=== PATIENT | male | born 1965 | race Caucasian/White ===

== ENCOUNTER 2021-04-09 12:02 | Inpatient (IN) | payer OTHER ==
[~2021-04-09] VITALS: Ht 182.9 cm; Wt 93.4 kg
[~2021-04-09 12:02] MED LIST: ASPIR 8181 MG PO; COMBIGAN EYE DR10 ML OPHTHALMIC; FLOMAX0.4 MG PO; KEPPRA 500 MG500 M1 PO; NICOTINE TRANSD21 M1 TRANSDERM; SIMVASTATIN40 MG PO; TOPROL XL25 MG PO; VENLAFAXIN75 MG/1 T2 PO
--- NOTE | 2021-04-09 15:40 | NUR ---
PATIENT COVID TESTING COMPLETED 04/09/21 WITH NEGATIVE RESULT.
[2021-04-09 18:21] VITALS: BP 135/77
--- NOTE | 2021-04-10 02:40 | NUR ---
ASSUMED CARE AT 1930 OF 04/09. PATIENT ARRIVE ON UNIT AT 1750 AND PREVIOUS NURSE PERFORMED ADMISSION ASSESSMENT. ADMISSION PACKET PROVIDED TO PATIENT, PATIENT IS ORIENTED TO ROOM AND UNIT. CONSENT FORMS ARE SIGNED, ADVANCE DIRECTIVE PAPERWORK PLACED IN CHART. PATIENT IS A&O TO PERSON, TIME AND SITUATION, WAS REORIENTED TO PLACE. ON ROOM AIR, NON-PRODUCTIVE COUGH PRESENT. RIGHT ELBOW HAS FOAM DRESSING COVERING A SKIN ABRAISON. HARD OF HEARING, PER PATIENT HE IS DEAF IN LEFT EAR, AND WEARS EARPLUG TO SHOWER. WEARS GLASSES. DUE TO HX OF SEIZURES PATIENT HAS AN IMPLATED VAGUS NERVE STIMULATOR DEVICE IN HIS LEFT CHEST, WHICH IS ACTIVATED BY THE MAGNET TO ON PATIENTS RIGHT WRIST. REMAINS ON SEIZURE PRECAUTIONS. ABLE TO MAKE NEEDS KNOWN, MINIMAL ASSIST WITH TRANSFER AND AMBULATION TO TOILET, USING BG AND WALKER. FALL PRECAUTIONS IN PLACE, CALL LIGHT WITHIN REACH. WILL CONTINUE TO MONITOR.
[2021-04-10 06:03] LABS: HEMATOCRIT 37.8 % (42.0-52.0); HEMOGLOBIN 12.7 gm/dL (14.0-18.0); MCH 28.7 pg (26.0-34.0); MCHC 33.6 g/dL (28.0-37.0); MCV 85.5 fL (80.0-100.0); RBC 4.42 mil/uL (4.50-6.00); RDW 13.6 % (10.5-14.5); WBC 5.3 thou/uL (4.0-11.0)
[2021-04-10 06:43] LABS: CALCIUM 8.5 mg/dL (8.5-10.1); CREATININE 0.7 mg/dL (0.7-1.3); MAGNESIUM 2.1 mg/dL (1.8-2.4); POTASSIUM 3.3 mmol/L (3.5-5.1)
[2021-04-10 07:15] VITALS: BP 147/77
[2021-04-10 07:31] LABS: FOLIC ACID 4.7 ng/mL (8.6-58.9)
--- NOTE | 2021-04-10 11:50 | NUR ---
PATIENT IS ALERT, AND ORIENTED X 2-3, ABLE TO VOICE NEED. HE IS FORGETFUL AT TIMES. PATIENT IS CALM, COOPERATIVE WITH CARE. LUNGS WITH DIMINISHED SOUND IN ALL LOBE PER AUSCULTATION, BS+X4, ABD SOFT, NON-TENDER TO TOUCH. PATIENT IS EATING MEALS, AND DRINKING FLUID WELL. PATIENT TOOK ALL MEDICATION WHOLE WITHOUT DIFFICULTY. PATIENT IS PLACED ON 1500ML FLUID RESTRICTION IN 24HRS (ONLY WATER), HE CAN HAVE COFFEE, JUICE, OR ANY OTHER DRINK PER NURSE PRACTITIONER (BREA). PATIENT IS UPPER [place], DEAF TO LEFT EAR, EAR PLUG IN PLACE TO LEFT EAR. PATIENT REQUIRES ASIST OF STAFF WITH GAIT BELT TO TRANSFER. OPTIFOARM APPLIED TO RIGHT ELBOW ABRASION. FALL, AND SEIZURE PRECAUTION IN PLACE, NO SIGN OF ACUTE DISTRESS NOTED AT THIS TIME, CALL LIGHT IN PLACE, WILL CONTINUE TO MONITOR.
--- NOTE | 2021-04-10 16:29 | NUR ---
56 year old male, from [facility]. Dx fall, weakness and ams. Hx of seizures. He lives at home with his fiance delgado # [phone]. Prior to hospital he was up walking around with his cane. does not drive r/t his seizures. His fiance already assist with his medication and finances. There is 7 steps to enter the home and then another 8 stairs up to the kitchen and bedrooms. No hh, skilled or acute rehab in the past. Will cont following as needed for dc needs.
--- NOTE | 2021-04-10 19:32 | NUR ---
ASSUMED CARE OF PT AT 1910. PT IS A&OX4. IS ON ROOM AIR. DENIES PAIN. IS STABLE. SEIZURE PRECAUTIONS IN PLACE. LEFT CHEST IMPLANTED DEVICE IN PLACE WITH MONITORING DEVICE ON LEFT WRIST. RIGHT ARM FOAM DRSG C/D/I. IS ABLE TO TURN SELF IN BED. IS UP WITH TOUCH ASSIST X1, GB, WALKER. FALL PRECAUTIONS & HOURLY ROUNDING CONTINUED THIS SHIFT. LABS & VITALS REVIEWED. PT IS READY FOR BED. CALL LIGHT WITHIN REACH. CONTINUES ON 1500ML FLUID WATER RESTRICITON. HAS 400 ML LEFT IN WATER MUG. CALL LIGHT WITHIN REACH. WILL CONTINUE TO MONITOR.
[2021-04-10 19:51] VITALS: BP 121/82
[2021-04-11 04:06] LABS: GLYCOHEMOGLOBIN (HGB A1C) 5.4 % (4.8-5.6)
[2021-04-11 08:00] VITALS: BP 127/72
--- NOTE | 2021-04-11 16:19 | NUR ---
PT ALERT AND ORIENTED. PLEASANT AND COOPERATIVE WITH CARES. DENIED HAVING PAIN OR DISCOMFORT. ENCOURAGED TO USE IS. UP IN THE CHAIR MID AFTERNOON. SEIZURE PRECAUTION ENFORCED. NO CONCERNS AT THIS TIME.
[2021-04-11 19:16] VITALS: BP 127/78
--- NOTE | 2021-04-12 05:39 | NUR ---
04-12-21 CARE TRANSFERRED 1899. PT AAOX4, VSS, RR EVEN AND NONLABORED ON RA, PT LUNGS CLEAR DIMINSHED WITH NONPRODUCTIVE COUGH, HT RR, ABD SOFT AND ACTIVE. PT DENIES PAIN. LEFT CHEST IMPLANT IN PLACE WITH LEFT WRIST MONITOR IN PLACE. PT RIGHT FOREARM DRESSING C/D/I. SEIZURE AND FALL PRECAUTION IN PLACE. PT HAD 350ML WATER, MAINTAINING 1500CC DAILY. PT UP X1 ASSIST WITH WALKER AND GAIT BELT IN PLACE.
[2021-04-12 07:15] VITALS: BP 124/77
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
[2021-04-12 19:35] VITALS: BP 139/85
--- NOTE | 2021-04-13 05:32 | NUR ---
ASSUMED PT CARE THIS PM. PT IS ALERT AND ORINTED X4. PT IS ON SEIZURE PRECAUTION. PT CARES FOR ASSISTANCE TO THE BR AND SOMETIMES USES URINAL.PT DID NOT VERBALIZE ANY CONCERNS AND NO VISIBLE SIGN OF DISTRESS WAS NOTED. PT IS ON RA. FALL PRECAUTIONS IN PLACE. WILL CONTINUE TO MONITOR.
[2021-04-13 06:06] LABS: CALCIUM 8.3 mg/dL (8.5-10.1); CREATININE 0.7 mg/dL (0.7-1.3)
[2021-04-13 08:00] VITALS: BP 130/63
--- NOTE | 2021-04-13 17:39 | NUR ---
Patient care resummed, patient lying in bed in a semi-fowlers postion. Patient on seziure and fall precautions. A&O*4, lung sounds clear & unlabored, abdomen soft without distention noted, bowel sounds present*4. Patient is a *1 assist, standby with walker and gait belt. No concerns voiced with REAL ESTATE LEGAL SECRETARY at this time, no visible signs of distress was noted. Patient has Left chest implant in place with wrist monitior. Patient also has a dressing to the Right forarm which is C/D/I. VSS, on room air and fluid restriction in place at 1,500cc. Medications were taken whole without complication with half a cup of water. Will continue to monitior patient for safety.
[2021-04-13 20:00] VITALS: BP 146/78
--- NOTE | 2021-04-14 04:30 | NUR ---
04-13-21 CARE TRANSFERRED 1899. PT AAOX3, VSS, RR EVEN AND NONLABORED ON RA, PT LUNGS CLEAR DIMISHED, HT RR, ABD SOFT AND ACTIVE. PT L. CHEST IMPLANT WITH L. WRIST MONITOR IN PLACE. R. FOREARM DRESSING C/D/I. DURING MEDICATION ADMIN PT HAD NO DIFFICLTIES TAKING MEDICATION WHOLE WITH WATER. LATER DUMPED 300ML OF WATER. 480ML OF FRESH WATER WILL CONTINUE TO MONITOR 1500ML/DAILY. PT HAS REPORTED HEADACHE AND PAIN HAS BEEN MANAGED WITH PRN.
[2021-04-14 07:15] VITALS: BP 124/78
--- NOTE | 2021-04-14 10:41 | NUR ---
ASSUMED CARE OF PT AT 0700 THIS MORNING. PT IS A/OX4 AND HAS NO COMPLAINTS. ASSESSMENTS CHARTED AND OTHERWISE UNREMARKABLE. FALL AND SEIZURE PRECAUTIONS ARE IN PLACE. CALL LIGHT AND OTHER NEEDS ARE IN REACH. MEDS AND TX GIVEN NEEDED AND SCHEDULED. PHYS THPY AND OT WORKING WITH PT TODAY. WILL MONITOR AND WILL NOTE ANY CHANGES.
[2021-04-14 19:50] VITALS: BP 163/80
--- NOTE | 2021-04-15 00:19 | NUR ---
PT ALERT AND ORIENTED X 4. AMB TO BR WITH WALKER AND ASSIST X 1 WITHOUT DIFFICULTY. PT TAKES MEDS WITH WATER WITHOUT DIFFICULTY. AT START OF SHIFT, PT STATED HE WAS FEELING FUNNY LIKE HE MIGHT HAVE A SEIZURE. WAIVED LEFT WRIST DEVICE OVER LEFT CHEST IMPLANTED DEVICE AND FEELING WENT AWAY IMMEDIATELY. NO SEIZURE ACTIVITIY SO FAR TONIGHT. PT DENIES PAIN OR DISCOMFORT. BED ALARM ON FOR SAFETY. PT CHECKED ON HOURLY ROUNDS. PT EASILY VISIBLE FROM NURSES STATION.
[2021-04-15 07:15] VITALS: BP 143/65
--- NOTE | 2021-04-15 12:54 | NUR ---
PT ALERT AND ORIENTED TIMES FOUR. VSS. PT DENIES PAIN/SOA AT THIS TIME. PT WORKED WELL WITH PT/OT TODAY. PT TOLERATES MEDS AND MEALS. PT PROGRESSING TOWARDS POC GOALS.
[2021-04-15 20:22] VITALS: BP 160/82
--- NOTE | 2021-04-16 02:26 | NUR ---
PT ASSESSMENT COMPLETED AND VSS. MEDS GIVEN ORDERED AND WELL TOLERATED. FALL PRECAUTIONS IN PLACE. UP TO THE BATHROOM WITH ASST/GAIT/WALKER. SEIZURE PRECAUTIONS IN PLACE - 0 NOTED SO FAR DURING SHIFT. SLEEPING WELL AT THIS TIME. WILL CONTINUE TO MONITOR FREQUENTLY.
[2021-04-16 07:15] VITALS: BP 142/88
--- NOTE | 2021-04-16 13:50 | NUR ---
team meeting, limited carry over with his cognition. Impulsive during shower. Needs shower chair for home. Balance impairment. Needs assist with medication and finances. Prior to hospital he was able to be home alone. Check and see if his finance works in the home or outside the home. D/C 04/23 with 08/12 supervision. Will need FWW.
--- NOTE | 2021-04-16 16:05 | NUR ---
ASSUMED CARE AT 0700. PATIENT IS ALERT AND ORIENTED X1-2. PATIENT STEWART'S, HOSTESS ARE EQUAL. LUNGS ARE CLEAR AND DIMISHED. ABD IS SOFT WITH BSX4. PATIENT CAN BE BE RETROPULSIVE. PATIENT IS UP WITH 1 GAIT BELT AND WALKER TO BATHROOM TO VOID. FALL AND SAFETY PROTOCOLS IN PLACE. DENIES PAIN AT THIS TIME. WILL CONTINUE TO MONITER.
[2021-04-16 19:33] VITALS: BP 124/80
--- NOTE | 2021-04-17 01:57 | NUR ---
PT ASSESSMENT COMPLETED AND VSS. MEDS GIVEN ORDERED AND WELL TOLERATED. FALL PRECAUTIONS IN PLACE. UP TO THE BATHROOM WITH ASST/GAIT/WALKER. STEADY. PT DENIES PAIN/N/SOA. SLEEPING WELL. SEIZURE PRECAUTIONS. NO SEIZURE ACTIVITY SO FAR DURING SHIFT. WILL CONTINUE TO MONITOR FREQUENTLY.
[2021-04-17 07:15] VITALS: BP 116/67
[2021-04-17 18:14] VITALS: BP 116/67
--- NOTE | 2021-04-17 18:27 | NUR ---
Resummed care from overnight shift this am. Client was in room resting during morning shift. Client present calm, cooperative, and pleasant during assessment. Client is currently on fall and seizure precautions. No seizures during this shift. Client has been using urinal to urinate, but was able to walk with crutches to toilet. Client has not expressed any pain during this shift, and remains current on all medications, well tolerated. No further concerns.
[2021-04-17 19:45] VITALS: BP 141/77
--- NOTE | 2021-04-18 03:05 | NUR ---
PT ASSESSMENT COMPLETED AND VSS. MEDS GIVEN ORDERED AND WELL TOLERATED. FALL PRECAUTIONS IN PLACE. UP TO THE BATHROOM WITH ASST/GAIT/WALKER. STEADY. SEIZURE PRECAUTIONS IN PLACE. NO SEIZURE ACTIVITY SO FAR DURING SHIFT. SLEEPING WELL. WILL CONTINUE TO MONITOR FREQUENTLY.
[2021-04-18 06:53] LABS: HEMATOCRIT 41.3 % (42.0-52.0); HEMOGLOBIN 13.5 gm/dL (14.0-18.0); MCH 28.5 pg (26.0-34.0); MCHC 32.7 g/dL (28.0-37.0); MCV 87.1 fL (80.0-100.0); PLATELET COUNT 285 thou/uL (150-400); POLYS 62.2 % (36.0-66.0); RBC 4.75 mil/uL (4.50-6.00); RDW 13.6 % (10.5-14.5); WBC 5.6 thou/uL (4.0-11.0)
[2021-04-18 06:54] LABS: ABSOLUTE NEUTROPHILS 3.5 thou/uL (1.4-8.2); BASOPHILS 0.9 % (0.0-2.0); EOSINOPHILS 1.5 % (0.0-3.0); LYMPHOCYTES 27.1 % (24.0-44.0); MONOCYTES 8.3 % (1.0-8.0)
[2021-04-18 07:14] LABS: CALCIUM 8.8 mg/dL (8.5-10.1); CREATININE 0.8 mg/dL (0.7-1.3); MAGNESIUM 2.1 mg/dL (1.8-2.4); POTASSIUM 4.6 mmol/L (3.5-5.1)
[2021-04-18 08:00] VITALS: BP 135/76
--- NOTE | 2021-04-18 12:41 | NUR ---
Nutrition: pt seen for LOS on rehab unit. Admit with seizures, gait instability. PMH: HLD, HTN, ETOH. Eating well, 75-100% most meals on regular diet. Girlfriend orders his meals at times. Pt reports UBW 224#, noted weight on admit 206#. Unsure of accuracy, pt was not aware of loss as he had been eating well. REC re-weigh. BM 04/16. Pt on MVI, folic acid and vitamin D. Low nutrition risk.
[2021-04-18 20:30] VITALS: BP 125/78
--- NOTE | 2021-04-18 23:56 | NUR ---
PT ASSESSMENT COMPLETED AND VSS. MEDS GIVEN ORDERED AND WELL TOLERATED. FALL PRECAUTIONS IN PLACE. UP TO THE BATHROOM WITH ASST/GAIT/WALKER. STEADY. PT C/O MILD CONSTIPATION. GAVE PT A STOOL SOFTNER. SLEEPING WELL. SEIZURE PRECAUTIONS IN PLACE. NO SEIZURE ACTIVITY NOTED. WILL CONTINUE TO MONITOR FREQUENTLY.
[2021-04-19 08:00] VITALS: BP 122/68
--- NOTE | 2021-04-19 13:04 | NUR ---
CARE OF PATIENT ASSUMED AT 0700, PATIENT ALERT AND ORIENTED X4, PATIENT PLEASANT WITH CARE, TOOK MEDICATION WHOLE AND SATED TO ME THAT HE LIKES TO TAKE MEDICATION ON TIME BEFORE THERAPY COMES IN. HE IS A ONE PERSON ASSIST, ASSESSMENT COMPLETED, ACTIVE BOWEL SOUND WITH SOFT ABDOMEN, SKIN INTACT, NO EDEMA NOTED, HR REG, PATIENT IS ON RM AIR, VSS, PATIENT DENIES PAIN AND HE IS ABLE TO VERBALIZE NEEDS. WILL CONTINUE TO MONITOR PATIENT FOR SAFETY.
--- NOTE | 2021-04-19 16:35 | NUR ---
Cont following as needed for dc needs. 04/23 with 08/12 supervision, Fww and shower bench. [facility] will need to be notified when he is dc.
[2021-04-19 19:00] VITALS: BP 126/79
--- NOTE | 2021-04-20 05:52 | NUR ---
ASSUMED CARE AT 1915 OF 04/19. PATIENT IS A&OX4, BUT CAN BE FORGETFUL. DENIES PAIN OR SHORTNESS OF BREATH. STAND BY ASSIST WITH TRANSFER AND AMBULATION USING GB AND WALKER. REMAINS ON SEIZURE PRECAUTIONS. NO SEIZURE ACTIVITY NOTED. FALL PRECAUTIONS IN PLACE, CALL LIGHT WITHIN REACH. WILL CONTINUE TO MONITOR.
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
[2021-04-20 10:32] VITALS: BP 121/68
--- NOTE | 2021-04-20 12:44 | NUR ---
Assumed care from overnight shift this am. Client was in bed resting. Client walks with a walker, and presents an unsteady gait, but is on fall precautions and supervision/assist when walking. Walker, gait belt, and staff assist all in place during movement as well as respective chair and bed alarms when positioned. Client presents calm and cooperative. Voiced concern of not having bowel movement for two days. Was given colace scheduled to help with this concern. As of time of this note, no bowel movement was had. Client has been assisted to toilet 2x this shift. This staff and OT also helped client with shower, with client being on standby/minimal assist during this time. Client presents with no other needs at this time. All medication tolerated well.
[2021-04-20 20:00] VITALS: BP 132/79
--- NOTE | 2021-04-21 04:28 | NUR ---
ASSUMED CARE AT 1900 OF 04/20. PATIENT IS A&OX4, VERY FORGETFUL AND REQUIRES REMINDERS OFTEN. PATIENT REPORTED CONSTIPATION AT START OF SHIFT, ABDOMEN WAS DISTENDED, BOWEL SOUNDS PRESENT AND ACTIVE. ONE TIME DOSE OF SUPPOSITORY BISACODYL ADMINISTERED AND WAS EFFECTTIVE, PATIENT WAS ABLE TO HAVE 1 LARGE BM. PATIENT REPORTS RELEIF. SBA TO CGA WITH TRANSFERS AND AMBULATION, USING GB AND WALKER. REMAINS ON SEIZURE PRECAUTIONS, NO SEIZURE ACTIVITY NOTED. FALL PRECAUTIONS AND FREQUENT OBSERVATION IN PLACE. CALL LIGHT WITH REACH. WILL CONTINUE TO MONITOR.
[2021-04-21 07:03] VITALS: BP 117/78
--- NOTE | 2021-04-21 08:41 | NUR ---
PT UP WITH WALKER THIS AM TO BATHROOM. PT HAD LARGE BM DURING THE NIGHT. PT DENIES ANY PAIN. PT HAS MAGNET TO LEFT WRIST FOR ANY SEIZURE ACTIVITY. PT LUNGS CLEAR. PT TOOK MEDS THIS AM WITH WATER. PT IS STAND-BY ASSIST WITH WALKER.
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
[2021-04-21 19:16] VITALS: BP 136/70
--- NOTE | 2021-04-21 23:54 | NUR ---
PT ASSESSMENT COMPLETED AND VSS. MEDS GIVEN ORDERED AND WELL TOLERATED. FALL PRECAUTIONS IN PLACE. UP TO THE BATHROOM WITH ASST/GAIT/WALKER - STEADY. DRYED AND FOLDED PT'S CLOTHING. PT DENIES NEEDS. SEIZURE PRECAUTIONS IN PLACE. NO SEIZURES NOTED SO FAR DURING SHIFT. SLEEPING WELL. WILL CONTINUE TO MONITOR FREQUENTLY.
[2021-04-22 07:00] VITALS: BP 129/83
--- NOTE | 2021-04-22 09:41 | NUR ---
PT FINISHED WORKING WITH THERAPY AND TOOK AM MEDS. PT TOOK WHOLE MED CUP AT ONE TIME. PT LUNGS CLEAR. PT STATED HE IS GOING HOME TOMMORROW. PT UP WITH WALKER WITH STAND-BY ASSIST. NO SIGNS OF SEIZURE ACTIVITY SINCE ADMIT. PT DENIES ANY PAIN.
--- NOTE | 2021-04-22 16:00 | NUR ---
Cm called his sig other delgado, left message requesting call back related to dc tomorrow.
[2021-04-22 19:39] VITALS: BP 125/71
--- NOTE | 2021-04-22 23:37 | NUR ---
PT ASSESSMENT COMPLETED AND VSS. MEDS GIVEN ORDERED AND WELL TOLERATED. FALL PRECAUTIONS IN PLACE. UP TO THE BATHROOM WITH ASST/GAIT/WALKER. STEADY. SEIZURE PRECAUTIONS IN PLACE. 0 SEIZURE ACTIVITY NOTED SO FAR DURING SHIFT. PT EXCITED ABOUT GOING HOME. SLEEPING WELL. WILL CONTINUE TO MONITOR FREQUENTLY.
[2021-04-23 07:30] VITALS: BP 129/73
--- NOTE | 2021-04-23 08:30 | NUR ---
Prior auth from [place] medicaid for fww, auth # [id number].
[2021-04-23] MEDS ORDERED: VIMPAT100 MG PO (08:45)
[2021-04-23] MEDS ORDERED: BAYER CHEWABLE81 MG PO (08:49)
[2021-04-23] MEDS ORDERED: CENTRUM SILVER1 EAC4 PO (08:49)
[2021-04-23] MEDS ORDERED: VITAMIN D325 MC2 PO (08:49)
[2021-04-23] MEDS ORDERED: LAMICTAL200 MG PO (08:49)
[2021-04-23] MEDS ORDERED: FOLIC ACID1 MG PO (08:49)
[2021-04-23] MEDS ORDERED: CARBAMAZEPINE200 M2 PO (08:49)
[2021-04-23] MEDS ORDERED: OXYBUTYNIN 5 MG5 M2 PO (08:49)
[2021-04-23] MEDS ORDERED: COLACE100 MG PO (08:49)
[2021-04-23] MEDS ORDERED: LAMICTAL 25 MG25 MG PO (08:49)
--- NOTE | 2021-04-23 09:01 | NUR ---
PT FINISHED WALKING WITH THERAPY. PT UP WITH WALKER WITH STEADY GAIT. PT IS STAND-BY ASSIST. PT DENIES ANY PAIN. NO SIGNS OF SEIZURE ACTIVITY NOTED. PT IS DISCHARGING TODAY THIS AFTERNOON. PT TOOK MEDS WHOLE IN MED CUP.
--- NOTE | 2021-04-23 09:46 | NUR ---
Dave spoke with leti, he trying to reach martita to see what time he can be dc today. Dave called martita, she answered. Martita plans on picking him up after she gets off work today around [phone]. Monico vanegas will deliver fww prior to dc today.
[2021-04-23 09:54] VITALS: BP 129/73
--- NOTE | 2021-04-23 15:03 | NUR ---
PT WAITING ON RIDE AND D/C INSTRUCTIONS. PT HAS BEEN CALLING PRIOR TO GOING TO BATHROOM FOR ASSISTANCE.
[2021-04-23] MEDS ORDERED: HOME MEDICATION PO (16:07)
--- NOTE | 2021-04-23 16:09 | NUR ---
PT LEFT VIA W/C TO ELEVATOR AND TO CAR. PT SIG. OTHER IS HERE AND MEDICATIONS ARE GOING OVER BY BREA BRYAN. PT HOME MEDICATION WAS GIVEN BACK, ALONG WITH PT PERSONAL ITEMS. PT VERBALY UNDERSTOOD D/C ORDERS. PT ABLE TO WHEEL SELF TO ELEVATOR AND GET INTO VEHICLE WITHOUT ANY ISSUES.
== END 2021-04-23 16:00 | disposition home or self-care (01) | DRG 91 ==
PROVIDERS: Nurse Practitioner; Nurse Practitioner Family; ADMIT Physical Medicine & Rehabilitation; ATTEND Physical Medicine & Rehabilitation
DX: R26.89 Other abnormalities of gait and mobility (principal); J18.9 Pneumonia, unspecified organism; G40.802 Other epilepsy, not intractable, without status epilepticus; E87.1 Hypo-osmolality and hyponatremia; I25.10 Atherosclerotic heart disease of native coronary artery without angina pectoris; F32.9 Major depressive disorder, single episode, unspecified; I10 Essential (primary) hypertension; E78.5 Hyperlipidemia, unspecified; G47.33 Obstructive sleep apnea (adult) (pediatric); F01.50 Vascular dementia, unspecified severity, without behavioral disturbance, psychotic disturbance, mood disturbance, and anxiety; F41.9 Anxiety disorder, unspecified; F12.90 Cannabis use, unspecified, uncomplicated; M19.90 Unspecified osteoarthritis, unspecified site; E87.6 Hypokalemia; E53.8 Deficiency of other specified B group vitamins; E55.9 Vitamin D deficiency, unspecified; K59.00 Constipation, unspecified; I25.2 Old myocardial infarction; Z87.891 Personal history of nicotine dependence; Z87.820 Personal history of traumatic brain injury; Z79.82 Long term (current) use of aspirin; Z79.899 Other long term (current) drug therapy
CPT/HCPCS: 10112